=== PATIENT | female | born 1995 | race American Indian/Alaskan Native ===

== ENCOUNTER 2017-12-06 18:21 | Emergency (ER) | payer MEDICAID ==
[2017-12-06 18:34] VITALS: BP 114/63
[2017-12-06] MEDS ORDERED: TYLENOL ONE (22:11)
[2017-12-06] MEDS ORDERED: TYLENOL PO ONE (22:15)
--- NOTE | 2017-12-06 22:51 | Emergency Department Report ---
ED Upper Extremity Inj HPI - General Chief Complaint: Extremity Injury, Upper Stated Complaint: POSS BROKEN FINGER Time Seen by Provider: 12/06/17 22:45 Source: patient Mode of arrival: Ambulatory Limitations: No Limitations - History of Present Illness Initial Comments: Patient is a 22-year-old -[place] female who presents for a left thumb three-quarter avulsion patient states I have artificial nails and I performed a cart will bending my left thumb nail backwards and almost tore it off, now complains of 5/10 pain aching bleeding controlled with direct pressure. There is no deformity minimal bleeding range of motion intact [employer] less than 36, no pain on axial loading of thumb no snuffbox tenderness flexion extension abduction adduction intact to direct confrontation. MD Complaint: Injury to:: left Onset/Timin -: hour(s) Other Extremity Injury: Fingers: Left (left thumb nail avulsion ) Other Injuries: none Place: home Severity scale (0 -10): 5 Improves With: none Worsens With: movement of extremity, other (palpation ) Context: other (performing cartwheel landed on hand and bent thumb nail backards ) Associated Symptoms: denies: weakness, numbness, neck pain, suspects foreign body, nausea/vomiting, heard/felt popping sensat - Related Data Previous Rx's Medication Instructions Recorded Last Taken Type traMADol [Ultram] 50 mg PO Q8H PRN #15 tablet 12/06/17 Unknown Rx Allergies Allergy/AdvReac Type Severity Reaction Status Date / Time iodine Allergy Swelling Verified 12/06/17 18:30 shellfish derived Allergy Swelling Verified 12/06/17 18:30 ED Review of Systems ROS: Stated complaint: POSS BROKEN FINGER Other details as noted in HPI Constitutional: denies: chills, fever Eyes: denies: eye pain, eye discharge, vision change ENT: denies: ear pain, throat pain Respiratory: denies: cough, shortness of breath, wheezing Cardiovascular: denies: chest pain, palpitations Endocrine: no symptoms reported Gastrointestinal: denies: abdominal pain, nausea, diarrhea Genitourinary: denies: urgency, dysuria, discharge Musculoskeletal: other (left thumb nail partial avulsion ) Skin: denies: rash, lesions Neurological: denies: headache, weakness, paresthesias Psychiatric: denies: anxiety, depression Hematological/Lymphatic: denies: easy bleeding, easy bruising ED Past Medical Hx - Past Medical History Previous Medical History?: Yes Hx Asthma: Yes - Surgical History Past Surgical History?: No - Social History Smoking Status: Never Smoker Substance Use Type: None - Medications Home Medications: Home Medications Medication Instructions Recorded Confirmed Last Taken Type traMADol [Ultram] 50 mg PO Q8H PRN #15 tablet 12/06/17 Unknown Rx ED Physical Exam - General Limitations: No Limitations General appearance: alert, in no apparent distress - Head Head exam: Present: atraumatic, normocephalic - Eye Eye exam: Present: normal appearance - ENT ENT exam: Present: mucous membranes moist - Neck Neck exam: Present: normal inspection - Respiratory Respiratory exam: Present: normal lung sounds bilaterally. Absent: respiratory distress - Cardiovascular Cardiovascular Exam: Present: regular rate, normal rhythm. Absent: systolic murmur, diastolic murmur, rubs, gallop - GI/Abdominal GI/Abdominal exam: Present: soft, normal bowel sounds - Rectal Rectal exam: Present: deferred - Extremities Exam Extremities exam: Present: tenderness (left thumb naild bed partial avulsion ), normal capillary refill. Absent: pedal edema, joint swelling, calf tenderness - Expanded Upper Extremity Exam Left Hand Wrist exam: Present: nail avulsion (left thumb ) Neuro motor exam: Present: wrist extension intact, thumb opposition intact, thumb IP flexion intact, thumb adduction intact, fingers 2-5 abduction intact Neurosensory exam: Present: 2-point discrimination, radial nerve intact, ulnar nerve intact, median nerve intact Vascular: Present: normal capillary refill, radial pulse, brachial pulse, ulnar pulse. Absent: vascular compromise, Pallo, pulse deficit radial art, pulse deficit ulnar art, pulse deficit brachial art - Back Exam Back exam: Present: normal inspection - Neurological Exam Neurological exam: Present: alert, oriented X3 - Psychiatric Psychiatric exam: Present: normal affect, normal mood - Skin Skin exam: Present: warm, dry, intact, normal color. Absent: rash ED Course Vital Signs 12/06/17 18:31 Temperature 98.6 F Pulse Rate 82 Respiratory 16 Rate Blood Pressure 114/63 O2 Sat by Pulse 100 Oximetry - I & D Left Dorsal Hand Type of Procedure: Simple Site: left thumb nail Blade Size: 11 I & D Procedure: betadine prep Progress: Patient for left thumb three-quarter nail avulsion minimal bleeding no deformity range of motion intact wound clean with Betadine solution a digital block left thumb with 1% lidocaine plain now removed using an 11 blade incision to nail bed and forceps to remove nail and nailbed probed with Q-tip irrigated with sterile saline wrestling gauze dressing applied all bleeding is controlled patient given wound care structures from as agreement and understanding of same patient tolerated procedure with minimal distress ED Medical Decision Making - Medical Decision Making Three-quarter left thumb nail bed avulsion nail removed see procedure note all bleeding controlled patient tolerated procedure with minimal distress dressing intact patient given wound care instructions patient will follow with PCP N2 to 3 days for wound check DC to home with when necessary tramadol patient verbalized agreement and understanding of discharge plan will be DC'd to home in stable condition at this time . Critical care attestation.: If time is entered above; I have spent that time in minutes in the direct care of this critically ill patient, excluding procedure time. ED Disposition Clinical Impression: Nail avulsion, finger Qualifiers: Encounter type: initial encounter Qualified Code(s): S61.309A - Unspecified open wound of unspecified finger with damage to nail, initial encounter Disposition: DC-01 TO HOME OR SELFCARE Is pt being admited?: No Does the pt Need Aspirin: No Condition: Good Instructions: Toenail/Fingernail Removal (ED) Prescriptions: traMADol [Ultram] 50 mg PO Q8H PRN #15 tablet PRN Reason: Pain Referrals: [facility] [Outside] - 3-5 Days Forms: Work/School Release Form(ED) Time of Disposition: 23:02
[2017-12-06] MEDS ORDERED: NORCO 5/325 PO ONE (22:52)
== END 2017-12-06 23:15 | disposition home or self-care (01) ==
LOC: ED 18:21
DX: S61.102A Unspecified open wound of left thumb with damage to nail, initial encounter (principal); Z88.8 Allergy status to other drugs, medicaments and biological substances; Z91.013 Allergy to seafood; J45.909 Unspecified asthma, uncomplicated; W20.8XXA Other cause of strike by thrown, projected or falling object, initial encounter; Y93.89 Activity, other specified; Y92.89 Other specified places as the place of occurrence of the external cause; Y99.8 Other external cause status
CPT/HCPCS: 99282